=== PATIENT | female | born 1960 | race Caucasian/White ===

== ENCOUNTER 2018-02-26 15:32 | Observation (INO) | payer BC ==
[2018-02-26] MEDS ORDERED: ASPIRIN 325 MG TABLET PO ONE (16:03)
[2018-02-26] MEDS ORDERED: MAGNESIUM HYDROXIDE/AL HYDROX 30 ML, LIDOCAINE VISC 2% 15ML 15 ML PO ONE ×2 (16:04)
--- NOTE | 2018-02-26 16:04 | Emergency Department Record ---
History of Present Illness - General Chief Complaint: Chest Pain Stated Complaint: CHEST PRESSURE,NO ENERGY Time Seen by Provider: 02/26/18 15:52 Source: Patient Mode of Arrival: Ambulatory Limitations: No limitations - History of Present Illness Initial Comments: The patient is here due to a 2-3 day hx of chest pressure. She describes the pressure as a baseline aching pain with intermittent sharp episodes along with intermittent fluttering of her chest. She is having mild RONALDO and fatigue with it. There is no nausea, vomiting, or sweating. The symptoms do not seem to get worse with exertion. Additionally the patient had severe "heartburn" last evening but that is better now. She denies any recent illnesses, injuries, cough , fever, or MAURER. The patient states she has had a stroke in the past but has had no residual deficits with it. MD Complaint: Chest pain Onset/Timin -: Days(s) Pain Location: Substernal Pain Radiation: None Severity: Mild Severity scale (1-10): 5 Quality: Heaviness Consistency: Constant Improves With: Nothing Worsens With: Nothing Treatments Prior to Arrival: None - Related Data Home Medications Medication Instructions Recorded Confirmed Last Taken No Home Med [NO HOME MEDS] 02/26/18 02/26/18 Unknown Allergies Allergy/AdvReac Type Severity Reaction Status Date / Time hydroxyzine [From Vistaril] Allergy HYPERSENSIT Verified 02/26/18 15:45 IVITY meperidine [From Demerol] Allergy HYPERSENSIT Verified 02/26/18 15:45 IVITY Travel Screening - Travel/Exposure Within Last 30 Days Have you traveled within the last 30 days?: No Review of Systems Constitutional: Denies: Chills, Fever Eyes: Denies: Eye discharge ENT: Denies: Congestion Respiratory: Denies: Cough, Dyspnea Cardiovascular: Reports: Chest pain Endocrine: Reports: Fatigue Gastrointestinal: Denies: Abdominal pain Genitourinary: Denies: Dysuria Musculoskeletal: Denies: Arthralgia Past Medical History - SOCIAL HISTORY Smoking Status: Heavy tobacco smoker (>10/day) Alcohol Use: None Drug Use: None - RESPIRATORY Hx Respiratory Disorders: Yes Comment:: pneumothorax - CARDIOVASCULAR Hx Cardio Disorders: Yes - NEURO Hx Neuro Disorders: Yes Hx TIA: Yes (2016) - Hx Genitourinary Disorders: No - ENDOCRINE Hx Endocrine Disorders: No - MUSCULOSKELETAL Hx Musculoskeletal Disorders: No - PSYCH Hx Psych Problems: No Family Medical History Any Significant Family History?: No Physical Exam - General General Appearance: Alert, Oriented x3, Cooperative, No acute distress - Head Head exam: Atraumatic, Normocephalic, Normal inspection - Eye Eye exam: Normal appearance, PERRL - ENT Throat exam: Normal inspection. negative: Tonsillar erythema, Tonsillar exudate - Neck Neck exam: Normal inspection, Full ROM. negative: Tenderness - Respiratory Respiratory exam: Normal lung sounds bilaterally, Chest wall tenderness (There is reproducible L upper chest wall tenderness which does reproduce the pain.). negative: Respiratory distress - Cardiovascular Cardiovascular Exam: Regular rate, Normal rhythm, Normal heart sounds. negative : Diastolic murmur, Systolic murmur - GI/Abdominal GI/Abdominal exam: Soft, Normal bowel sounds. negative: Tenderness - Extremities Extremities exam: Normal inspection, Full ROM, Normal capillary refill. negative: Tenderness - Back Back exam: Reports: Normal inspection - Neurological Neurological exam: Alert, Normal gait. negative: Abnormal gait, Motor sensory deficit - Psychiatric Psychiatric exam: negative: Anxious, Depressed - Skin Skin exam: negative: Rash Course Vital Signs 02/26/18 02/26/18 15:45 15:47 Temperature 98.4 F Pulse Rate [ 82 [employer] ] Respiratory 22 Rate Blood Pressure 166/81 [Left Arm] Pulse Ox 96 - Reevaluation(s) Reevaluation #1: The patient is doing very well at this time. She did refuse Toradol and Morphine for pain and did want Motrin. After 45 minutes post Motrin she does state her pain is improved. Due to her age and heavy tobacco use hx and with the intermittent fluttering, I did recommend a short stay hospital admission and she did accept. 02/26/18 17:43 Reevaluation #2: I did discuss the case with Naye JACOBS) and she does accept the patient for admission. 02/26/18 17:49 Medical Decision Making - Data Complexity MDM Data: Labs Ordered and/or Reviewed, X-Ray Ordered and/or Reviewed, EKG Ordered and/or Reviewed - Lab Data Result diagrams: 02/26/18 15:50 02/26/18 15:50 - EKG Data -: EKG Interpreted by Me EKG: No Acute Changes, Normal EKG - Radiology Data Radiology results: Report reviewed (CXR: Neg for any acute changes.) Disposition Disposition: Admit Clinical Impression: Heart palpitations Chest pain Qualifiers: Chest pain type: unspecified Qualified Code(s): R07.9 - Chest pain, unspecified Disposition: Still a Patient at [facility] Decision to Admit: Admit from ER Decision to Admit Date: 02/26/18 Decision to Admit Time: 17:50 Accepting Physician: Johnson Time Discussed w/Accepting Physician: 17:50 Condition: (2) Stable Forms: Patient Portal Access Time of Disposition: 17:50 Quality - Quality Measures Quality Measures: N/A - Blood Pressure Screening View Details: Yes Does Patient Have Any of the Following: No Blood Pressure Classification: Normal BP Reading Systolic Measurement: 118 Diastolic Measurement: 68 Screening for High Blood Pressure: < Normal BP, F/U Not Required > [[id number]]
[2018-02-26 16:11] LABS: BASO % 0.6 % (0-6); EOS % 1.4 % (0-6); GRAN % 47.8 % (47-80); HEMATOCRIT 41.4 % (35.0-47.0); HEMOGLOBIN 13.4 gm/dl (11.6-16.0); LYMPH % 43.1 % (16-45); MEAN CORPUSCULAR HEMOGLOBIN 32.4 pg (27-33); MEAN CORPUSCULAR HGB CONC 32.4 g/dl (32-36); MEAN PLATELET VOLUME 10.8 fl (7.4-10.4); MONO % 7.1 % (0-9); PLATELET COUNT 196 K/uL (130-400); RED BLOOD COUNT 4.14 M/uL (3.80-5.40); RED CELL DISTRIBUTION WIDTH 13.2 % (11.5-14.5); WHITE BLOOD COUNT W/O DIFF 6.4 K/uL (4.2-12.2)
[2018-02-26 16:25] LABS: BLOOD UREA NITROGEN 17 mg/dL (6-20); CREATININE 0.6 mg/dL (0.5-0.9); EST GLOMERULAR FILTRATION RATE > 60 mL/min; PARTIAL THROMBOPLASTIN TIME 27.2 SECONDS (24.5-39.1); PROTHROMBIN TIME (PATIENT) 10.4 SECONDS (9.5-12.1)
[2018-02-26 16:28] LABS: GLUCOSE,RANDOM 145 mg/dL (74-109)
[2018-02-26 16:30] LABS: CREATINE PHOSPHOKINASE 94 U/L (26-192)
[2018-02-26 16:32] LABS: CKMB 2.3 ng/mL (<3.77)
[2018-02-26] MEDS ORDERED: KETOROLAC 30 MG/ML VIAL IVP ONE (16:47)
[2018-02-26] MEDS ORDERED: IBUPROFEN 600 MG TABLET PO ONE (17:17)
[2018-02-26] MEDS ORDERED: ACETAMINOPHEN 325 MG TAB PO PRN (19:19)
[2018-02-26] MEDS ORDERED: IBUPROFEN 600 MG TABLET PO PRN (19:19)
--- NOTE | 2018-02-27 07:39 | RADIOLOGY REPORT ---
EXAM: CHEST, TWO VIEWS HISTORY: CHEST PAIN. TECHNIQUE: Upright PA and lateral views of the chest were obtained. Comparison: None. FINDINGS: The heart is not enlarged. No pulmonary venous hypertension is seen. No confluent air space opacity is identified. Minor biapical pleural and parenchymal scarring is present. Surgical chain sutures are demonstrated within the medial right lung apex. Small calcified nodules are scattered in each lung consistent with healed granulomatous disease. Mild degenerative changes are scattered within the visualized spine and shoulder girdles. IMPRESSION: 1. POST SURGICAL CHANGES WITHIN THE RIGHT LUNG APEX. MINOR BIAPICAL PLEURAL AND PARENCHYMAL SCARRING. 2. NO DEFINITE EVIDENCE OF AN ACUTE INTRATHORACIC PROCESS. 3. HEALED GRANULOMATOUS DISEASE IN EACH LUNG. JOB NUMBER: [id number] [facility]
== END 2018-02-26 20:40 | disposition left against medical advice (07) ==
LOC: ER 15:32 → MERGE 18:39 → MEDSURG 18:39
PROVIDERS: ADMIT Internal Medicine; ATTEND Internal Medicine
DX: R00.2 Palpitations (principal); R53.83 Other fatigue; F17.210 Nicotine dependence, cigarettes, uncomplicated; Z86.73 Personal history of transient ischemic attack (TIA), and cerebral infarction without residual deficits
CPT/HCPCS: 71046; 80048; 82550; 82553; 84484; 85025; 85379; 85610; 85730; 93005; 93010; 99285; J3490